=== PATIENT | female | born 1960 | race Caucasian/White ===

== ENCOUNTER 2016-04-19 15:50 | Emergency (ER) | payer OTHER ==
[2016-04-19 16:04] VITALS: O2SAT 96
--- NOTE | 2016-04-19 16:05 | EDPHY ---
H & P Chief Complaint Nursing Narrative: right thumb pain and swelling starting wedneday getting wose Time Seen by Provider: 04/19/16 16:05 - Personal History Current Tetanus/Diphtheria Vaccine: Yes Current Tetanus Diphtheria and Acellular Pertussis (TDAP): Yes Tetanus Vaccine Date: < 10 years - Medical/Surgical History Hx Asthma: No Hx Chronic Respiratory Disease: No Hx Diabetes: No Hx Cardiac Disease: No Hx Renal Disease: No Hx Cirrhosis: No Hx Alcoholism: No Hx HIV/AIDS: No Hx Splenectomy or Spleen Trauma: No Other PMH: none reported - Social History Smoking Status: Never smoked Constitutional: Initial Vital Signs Temperature (C) 36.3 C 04/19/16 16:01 Heart Rate 77 04/19/16 16:01 Respiratory Rate 18 04/19/16 16:01 Blood Pressure 134/83 H 04/19/16 16:01 O2 Sat (%) 96 04/19/16 16:01 O2 Delivery Mode Room Air Allergies/Adverse Reactions: No Known Allergies Allergy (Unverified 04/19/16 16:01) Home Medications: Medication Instructions Recorded NK [No Known Home Meds] 04/19/16 Medical Decision Making ED Course/Re-evaluation: CHIEF COMPLAINT: Right thumb swelling. HISTORY OF PRESENT ILLNESS: The patient is a 55-year-old female who presents with right thumb swelling. The swelling has become painful in the past 24 hours. Pain does not radiate. No fever. Normal range of motion in the finger REVIEW OF SYSTEMS: A 10 point review of systems was performed and is negative with the exception of the elements mentioned in the history of present illness. PHYSICAL EXAM: HR, BP, O2 Sat, RR. Temp noted General Appearance: Alert, well hydrated, appropriate, and non-toxic appearing. Head: Atraumatic without scalp tenderness or obvious injury Eyes: Pupils equal, round, reactive to light and accommodation, EOMI, no trauma , no injection. Ears: Clear bilaterally, no perforation, normal landmarks Nose: Atraumatic, no rhinorrhea, clear. Throat: There is no erythema or exudates, no lesions, normal tonsils, mucus membranes moist. Neck: Supple, 2+ carotid upstroke, nontender, no lymphadenopathy. Respiratory: No retractions, no distress, no wheezes, and no accessory muscle use. Lungs are clear to auscultation bilaterally. Cardiovascular: Regular rate and rhythm, no murmurs, rubs, or gallops. Bilateral carotid, radial, dorsalis pedis, and posterior tibial pulses intact. Good capillary refill all extremities. Gastrointestinal: Abdomen is soft, nontender, non-distended, no masses, no rebound, no guarding, no peritoneal signs. Musculoskeletal: Normal active ROM of all extremities, atraumatic. Neurological: Alert, appropriate, and interactive. The patient has normal DTRs and non-focal cranial nerves, motor, sensory, and cerebellar exam. Skin: No rashes, good turgor, no nodules on palpation. Past medical history:Denies Past surgical history:Denies. Family history:Non-contributory. Social history:Here alone. DIFFERENTIAL DIAGNOSIS: MEDICAL DECISION MAKING: Departure - Departure Condition: Good Referrals: NONE *PRIMARY CARE P,. [Primary Care Provider] - As per Instructions Report Scribed for: Jake Noble Report Scribed by: Brendan Escobar Date of Report: 04/19/16 Time of Report: 16:11
--- NOTE | 2016-04-19 16:16 | UCPHY ---
H & P Patient Type: New Chief Complaint Nursing Narrative: right thumb pain and swelling starting wedneday getting wose Time Seen by Provider: 04/19/16 16:05 - Personal History Current Tetanus/Diphtheria Vaccine: Yes Current Tetanus Diphtheria and Acellular Pertussis (TDAP): Yes Tetanus Vaccine Date: < 10 years - Medical/Surgical History Hx Asthma: No Hx Chronic Respiratory Disease: No Hx Diabetes: No Hx Cardiac Disease: No Hx Renal Disease: No Hx Cirrhosis: No Hx Alcoholism: No Hx HIV/AIDS: No Hx Splenectomy or Spleen Trauma: No Other PMH: none reported - Family History Significant Family History: No pertinent family hx - Social History Smoking Status: Never smoked Constitutional: Initial Vital Signs Temperature (C) 36.3 C 04/19/16 16:01 Heart Rate 77 04/19/16 16:01 Respiratory Rate 18 04/19/16 16:01 Blood Pressure 134/83 H 04/19/16 16:01 O2 Sat (%) 96 04/19/16 16:01 O2 Delivery Mode Room Air Allergies/Adverse Reactions: No Known Allergies Allergy (Unverified 04/19/16 16:01) Home Medications: Medication Instructions Recorded Cephalexin [Keflex (RX)] 500 mg PO TID #30 cap 04/19/16 Medical Decision Making ED Course/Re-evaluation: CHIEF COMPLAINT: Right thumb swelling. HISTORY OF PRESENT ILLNESS: The patient is a 55-year-old female who presents with right thumb swelling. The swelling has become painful in the past 24 hours and is located just proximally to the nailbed. Pain does not radiate. No fever. Normal range of motion in the finger. REVIEW OF SYSTEMS: A 10 point review of systems was performed and is negative with the exception of the elements mentioned in the history of present illness. PHYSICAL EXAM: HR, BP, O2 Sat, RR. Temp noted General Appearance: Alert, well hydrated, appropriate, and non-toxic appearing. Head: Atraumatic without scalp tenderness or obvious injury Eyes: Pupils equal, round, reactive to light and accommodation, EOMI, no trauma , no injection. Ears: Clear bilaterally, no perforation, normal landmarks Nose: Atraumatic, no rhinorrhea, clear. Throat: There is no erythema or exudates, no lesions, normal tonsils, mucus membranes moist. Neck: Supple, 2+ carotid upstroke, nontender, no lymphadenopathy. Respiratory: No retractions, no distress, no wheezes, and no accessory muscle use. Lungs are clear to auscultation bilaterally. Cardiovascular: Regular rate and rhythm, no murmurs, rubs, or gallops. Bilateral carotid, radial, dorsalis pedis, and posterior tibial pulses intact. Good capillary refill all extremities. Gastrointestinal: Abdomen is soft, nontender, non-distended, no masses, no rebound, no guarding, no peritoneal signs. Musculoskeletal: Normal active ROM of all extremities, atraumatic. Neurological: Alert, appropriate, and interactive. The patient has normal DTRs and non-focal cranial nerves, motor, sensory, and cerebellar exam. Skin: No rashes, good turgor, no nodules on palpation. Past medical history:Denies Past surgical history:Denies. Family history:Non-contributory. Social history:Here alone. PROCEDURES: Procedure: Incision and Drainage paronychia. The patient's paronychia was located on the right thumb. Risks, benefits, alternatives discussed with the patient and consent obtained. The area was prepped and draped in sterile fashion. The patient received local anesthesia with 1% lidocaine. The paronychia was incised with a #11 blade and purulent drainage was expressed. The patient tolerated the procedure well. The procedure was performed by myself. DIFFERENTIAL DIAGNOSIS: Includes but is not limited to paronychia, abscess, hematoma, ecchymosis. MEDICAL DECISION MAKIN-year-old female presents with obvious paronychia on the tip of her right thumb. This has recently started to cause her pain. There is no evidence of larger infection. The paronychia will be drained with local anesthetic (see procedure note for details). She will be placed on a course of Keflex. Departure - Departure Disposition: Home, Routine, Self-Care Clinical Impression: Paronychia Qualifiers: Laterality: right Qualifier Code: (L03.011) Cellulitis of right finger Condition: Good Instructions: Paronychia (ED) Additional Instructions: Take Keflex as prescribed. Keep finger clean with warm, soapy water. Return for fever, redness, other signs of infection, or any other serious worsening of condition. Referrals: NONE *PRIMARY CARE P,. [Primary Care Provider] - As per Instructions Prescriptions: Cephalexin [Keflex (RX)] 500 mg PO TID #30 cap - PQRS PQRS Measurement: Does not apply Report Scribed for: Jake Noble Report Scribed by: Brendan Escobar Date of Report: 04/19/16 Time of Report: 16:12
[2016-04-19 16:41] VITALS: BP 115/80; PULSE 76; RESP 16; TEMP 97.7
== END 2016-04-19 16:30 | disposition home or self-care (01) ==
LOC: CED 15:50
PROC: 0J9J0ZZ Drainage of Right Hand Subcutaneous Tissue and Fascia, Open Approach (ICD-10-PCS; principal; 2016-04-19)
DX: L03.011 Cellulitis of right finger (principal)
CPT/HCPCS: G0463-PO

== ENCOUNTER → 2016-07-12 | Outpatient (CLI) | payer OTHER | LOC: FIMAGING 09:54 | DX: Z12.31 Encounter for screening mammogram for malignant neoplasm of breast (principal) | CPT/HCPCS: G0202 ==

== ENCOUNTER → 2017-07-28 | Outpatient (CLI) | payer OTHER | LOC: FIMAGING 15:38 | DX: Z12.31 Encounter for screening mammogram for malignant neoplasm of breast (principal) ==

== ENCOUNTER → 2018-09-06 | Outpatient (CLI) | payer OTHER | LOC: FIMAGING 15:46 ==